=== PATIENT | female | born 1990 | race Caucasian/White ===

== ENCOUNTER 2018-12-19 21:05 | Emergency (ER) | payer OTHER ==
[~2018-12-19] VITALS: Ht 162.6 cm; Wt 54.8 kg
[2018-12-19 21:20] VITALS: BP 118/63
[2018-12-19] MEDS ORDERED: KETOROLAC 30 MG/1 ML ONE (22:35)
[2018-12-19] MEDS ORDERED: KETOROLAC 30 MG/1 ML IM ONE (23:00)
[2018-12-19 23:03] LABS: RAPID INFLUENZA A Negative (Negative); RAPID INFLUENZA B Negative (Negative)
== END 2018-12-19 23:17 | disposition home or self-care (01) ==
LOC: ED 23:00
DX: S16.1XXA Strain of muscle, fascia and tendon at neck level, initial encounter (principal); B34.9 Viral infection, unspecified; V63.5XXA Driver of heavy transport vehicle injured in collision with car, pick-up truck or van in traffic accident, initial encounter; Y93.89 Activity, other specified; Y92.410 Unspecified street and highway as the place of occurrence of the external cause; Y99.8 Other external cause status
CPT/HCPCS: 72072; 87400; 96372; 99284; J1885